=== PATIENT | female | born 1950 | race Caucasian/White ===

== ENCOUNTER 2018-04-03 21:52 | Emergency (ER) | payer MEDICARE ==
[~2018-04-03] VITALS: Ht 157.5 cm; Wt 103.3 kg
[2018-04-03 22:16] VITALS: BP 153/77
[2018-04-03] MEDS ORDERED: ondansetron/PF 4mg/2ml inj IV ONE (22:25)
[2018-04-03 22:40] LABS: PARTIAL THROMBOPLASTIN TIME 25 SECONDS (22-32); PROTHROMBIN TIME 10.6 SECONDS (9.0-12.0)
[2018-04-03 22:41] LABS: ALANINE AMINOTRANSFERASE 23 U/L (12-78); ALBUMIN 3.3 G/DL (3.4-5.0); ALBUMIN/GLOBULIN RATIO 0.8 (1.1-1.5); ALKALINE PHOSPHATASE 120 IU/L (46-116); ANION GAP 13 (8-16); ASPARTATE AMINO TRANSFERASE 17 U/L (10-37); BILIRUBIN,TOTAL 0.3 MG/DL (0.1-1.0); BLOOD UREA NITROGEN 9 MG/DL (7-18); BUN/CREATININE RATIO 10.1 (6.6-38.0); CALCIUM 9.2 MG/DL (8.5-10.1); CHLORIDE 104 MMOL/L (99-107); CREATININE 0.89 MG/DL (0.40-0.90); GLUCOSE 120 MG/DL (70-104); SODIUM 142 MMOL/L (135-145); TOTAL CARBON DIOXIDE 24.6 MMOL/L (24-32); TOTAL PROTEIN 7.5 G/DL (6.4-8.2); eGFR 63 ML/MIN
[2018-04-03 22:52] LABS: BASOPHILS # (AUTO) 0.1 X10'3 (0-0.2); BASOPHILS % (AUTO) 1.2 % (0-1); EOSINOPHILS # (AUTO) 0.3 X10'3 (0-0.9); EOSINOPHILS % (AUTO) 3.5 % (0-6); HEMATOCRIT 30.3 % (35.0-45.0); HEMOGLOBIN 9.6 g/dl (12.0-16.0); LYMPHOCYTES % (AUTO) 21.8 % (21-51); MEAN CORPUSCULAR HEMOGLOBIN 24.7 PG (27.0-31.0); MEAN CORPUSCULAR HGB CONC 31.5 % (33.0-36.5); MEAN CORPUSCULAR VOLUME 78.5 FL (78-98); MEAN PLATELET VOLUME 9.8 FL (7.4-10.4); MONOCYTES # (AUTO) 0.7 X10'3 (0-0.9); MONOCYTES % (AUTO) 7.5 % (2-12); NEUTROPHILS # (AUTO) 6.2 X10'3 (1.8-7.7); PLATELET COUNT 301 X10'3 (140-440); RED BLOOD COUNT 3.87 X10'6 (4.20-5.60); RED CELL DISTRIBUTION WIDTH 20.4 % (11.5-14.5); WHITE BLOOD COUNT 9.4 X10'3 (4.5-11.0)
[2018-04-03] MEDS ORDERED: potassium Cl 20 mEq SR tablet PO STA (23:11)
[2018-04-03] MEDS ORDERED: potassium 10mEq/100ml NS w/LIDOcaine (10mg/bag) IV ONE (23:15)
[2018-04-03] MEDS ORDERED: iohexol 300mg/ml 100ml inj. ONE (23:28)
[2018-04-03 23:53] LABS: HYPOCHROMASIA 1+; LARGE PLATELETS FEW; PLATELET ESTIMATE NORMAL
[2018-04-03 23:54] LABS: ANISOCYTOSIS 2+
[2018-04-04] MEDS ORDERED: ALBU8HFA PO (01:13)
== END 2018-04-04 01:26 | disposition home or self-care (01) ==
LOC: ER 21:53
DX: J44.9 Chronic obstructive pulmonary disease, unspecified (principal); E11.9 Type 2 diabetes mellitus without complications; I70.0 Atherosclerosis of aorta; Z86.73 Personal history of transient ischemic attack (TIA), and cerebral infarction without residual deficits; Z90.49 Acquired absence of other specified parts of digestive tract; Z98.890 Other specified postprocedural states; Z79.899 Other long term (current) drug therapy
CPT/HCPCS: 36415; 70491; 71045; 80053; 83880; 84484; 85025; 85610; 85730; 93005; 96374; 99285; J2405; J3480; Q9967

== ENCOUNTER 2018-09-07 10:18 | Outpatient (CLI) | payer MEDICARE ==
[~2018-09-07] VITALS: Ht 188 cm; Wt 149.7 kg
[2018-09-07 10:51] LABS: TOTAL HEMOGLOBIN 15.6 G/dl (12.0-16.0)
[2018-09-07] MEDS ORDERED: albuterol 2.5 MG/3 ML nebule NEB ONE (11:10)
== END 2018-09-07 23:59 | disposition home or self-care (01) ==
LOC: RT 10:18
PROVIDERS: ATTEND Internal Medicine Pulmonary Disease
DX: J44.9 Chronic obstructive pulmonary disease, unspecified (principal); J61 Pneumoconiosis due to asbestos and other mineral fibers; I10 Essential (primary) hypertension; F17.200 Nicotine dependence, unspecified, uncomplicated
CPT/HCPCS: 85018; 94060; 94727; 94729; 94760

== ENCOUNTER 2018-09-10 19:59 | Emergency (ER) | payer MEDICARE ==
[~2018-09-10] VITALS: Ht 157.5 cm; Wt 100.0 kg
[2018-09-10 20:09] VITALS: BP 119/59
[2018-09-10] MEDS ORDERED: HYDROcodone/acetaminophen 10/325mg tab PO STA (20:11)
[2018-09-10] MEDS ORDERED: HYDR-3965 PO (22:57)
== END 2018-09-10 23:07 | disposition home or self-care (01) ==
LOC: ER 20:00
DX: G89.29 Other chronic pain (principal); M54.5 Low back pain; J44.9 Chronic obstructive pulmonary disease, unspecified; E11.9 Type 2 diabetes mellitus without complications; Z86.73 Personal history of transient ischemic attack (TIA), and cerebral infarction without residual deficits; Z90.49 Acquired absence of other specified parts of digestive tract
CPT/HCPCS: 99283

== ENCOUNTER 2019-06-24 00:11 | Emergency (ER) | payer MEDICARE ==
[~2019-06-24] VITALS: Ht 157.5 cm; Wt 104.5 kg
[2019-06-24] MEDS ORDERED: AMOX-580 PO (03:09)
[2019-06-24] MEDS ORDERED: amox tr/potassium clavulanate 875/125mg TAB PO ONE (03:10)
[2019-06-24 03:24] VITALS: BP 119/76
== END 2019-06-24 03:31 | disposition home or self-care (01) ==
LOC: ER 00:12
DX: L03.032 Cellulitis of left toe (principal); L02.612 Cutaneous abscess of left foot; J44.9 Chronic obstructive pulmonary disease, unspecified; E11.9 Type 2 diabetes mellitus without complications; G89.29 Other chronic pain; F17.200 Nicotine dependence, unspecified, uncomplicated; Z86.73 Personal history of transient ischemic attack (TIA), and cerebral infarction without residual deficits; Z90.49 Acquired absence of other specified parts of digestive tract; Z98.890 Other specified postprocedural states
CPT/HCPCS: 10060; 99283

== ENCOUNTER 2022-08-12 20:11 | Inpatient (IN) | payer MEDICARE ==
[~2022-08-12] VITALS: Ht 162.6 cm; Wt 109.7 kg
[2022-08-12] MEDS ORDERED: morphine 4 MG/ML inj SYRINge IV ONE (23:55)
[2022-08-12] MEDS ORDERED: ondansetron/PF 4mg/2ml inj IV ONE (23:55)
[2022-08-13] VITALS (30 sets, daily range): BP systolic 71–142; BP diastolic 36–112
[2022-08-13] MEDS ORDERED: piperacillin/tazo 4.5gm/100ml 100 ML IV ONE
[2022-08-13] MEDS ORDERED: iohexol 300mg/ml 100ml inj. ONE (00:39)
[2022-08-13 00:43] LABS: BASOPHILS % (AUTO) 0.3 % (0-1); EOSINOPHILS % (AUTO) 0 % (0-6); LYMPHOCYTES # (AUTO) 0.8 X10'3 (1.1-4.8); LYMPHOCYTES % (AUTO) 4.3 % (21-51); MEAN CORPUSCULAR HEMOGLOBIN 20.2 PG (27.0-31.0); MEAN CORPUSCULAR HGB CONC 29.9 g/dL (33.0-36.5); MEAN CORPUSCULAR VOLUME 67.7 FL (78-98); MEAN PLATELET VOLUME 9.1 FL (7.4-10.4); MONOCYTES # (AUTO) 1.4 X10'3 (0-0.9); MONOCYTES % (AUTO) 7.7 % (2-12); NEUTROPHILS # (AUTO) 15.8 X10'3 (1.8-7.7); NEUTROPHILS % (AUTO) 87.7 % (42-75); PLATELET COUNT 313 X10'3 (140-440); RED BLOOD COUNT 3.07 X10'6 (4.20-5.60); RED CELL DISTRIBUTION WIDTH 19.6 % (11.5-14.5)
[2022-08-13] MEDS ORDERED: AMLO2.5T2 PO (00:46)
[2022-08-13] MEDS ORDERED: PANT40TA54 PO (00:46)
[2022-08-13] MEDS ORDERED: B12 PO (00:46)
[2022-08-13] MEDS ORDERED: LOSA25TA96 PO (00:46)
[2022-08-13] MEDS ORDERED: CLOP-32 PO (00:46)
[2022-08-13] MEDS ORDERED: CALCIUM PO (00:46)
[2022-08-13] MEDS ORDERED: ATOR40TA71 PO (00:46)
[2022-08-13 00:52] LABS: HEMATOCRIT 20.8 % (35.0-45.0); HEMOGLOBIN 6.2 g/dl (12.0-16.0)
[2022-08-13 00:54] LABS: ALANINE AMINOTRANSFERASE 11 U/L (12-78); ALBUMIN/GLOBULIN RATIO 0.7 (1.1-1.5); ALKALINE PHOSPHATASE 100 IU/L (46-116); ANION GAP 12 (8-16); ASPARTATE AMINO TRANSFERASE 13 U/L (10-37); BILIRUBIN,TOTAL 0.7 MG/DL (0.1-1.0); BLOOD UREA NITROGEN 11 MG/DL (7-18); CALCIUM 9.3 MG/DL (8.5-10.1); CHLORIDE 102 MMOL/L (99-107); GLUCOSE 138 MG/DL (70-104); POTASSIUM 4.2 MMOL/L (3.5-5.1); SODIUM 135 MMOL/L (135-145); TOTAL CARBON DIOXIDE 20.6 MMOL/L (24-32); TOTAL PROTEIN 7.5 G/DL (6.4-8.2); eGFR 49 ML/MIN
[2022-08-13 00:57] LABS: MAGNESIUM 1.6 MG/DL (1.5-2.4)
[2022-08-13] MEDS ORDERED: normal saline 1000ml 1,000 ML IV ONE ×3 (01:05→06:10)
[2022-08-13 01:19] LABS: ANISOCYTOSIS 2+; MICROCYTOSIS 2+; PLATELET ESTIMATE NORMAL
[2022-08-13 01:20] LABS: ELLIPTOCYTES FEW; HYPOCHROMASIA 1+; POLYCHROMASIA FEW
--- NOTE | 2022-08-13 01:27 | NUR ---
sister, stefanie, wants to be called with an update after 429. [phone]
--- NOTE | 2022-08-13 01:55 | NUR ---
Assumed care of patient at this time, patient noted to have BP 88/35, NSR 97.
[2022-08-13] MEDS ORDERED: vancomycin inj 1,000 MG in normal saline 250ml IV soln 250 ML IV ONE (02:05)
[2022-08-13] MEDS ORDERED: vancomycin/NS 1 GM ADD-VANTAGE 250 ML IV ONE (02:10)
[2022-08-13 02:27] LABS: C-REACTIVE PROTEIN 8.79 MG/DL (0.0-0.5)
--- NOTE | 2022-08-13 03:03 | NUR ---
Provider aware of ready blood, currently running slow zosyn, and order for vanco. Patient has two IV sites, patient mildly difficult IV start. Provider advised underwriter prioritize abx over blood given number of available lines.
--- NOTE | 2022-08-13 03:16 | NUR ---
Attempted 3rd IV site, unsuccessful, will revert back to original plan of IV abx -> blood transfusion.
--- NOTE | 2022-08-13 04:24 | NUR ---
Provider aware of new VS, no concern for blood transfusion reaction. patient also has noted expiratory wheezing, this was present prior to start of transfusion, patient reports using MDI for management at home.
[2022-08-13] MEDS ORDERED: ipratropium/albuterol 3ml nebule NEB ONE (04:25)
[2022-08-13] MEDS: normal saline 1000ml 1,000 ML IV SCH ×3 (04:45→23:36)
[2022-08-13] MEDS ORDERED: magnesium Cl slow-release 64mg tablet PO PRN (04:45)
[2022-08-13] MEDS ORDERED: ondansetron/PF 4mg/2ml inj IV PRN ×2 (04:45→17:20)
[2022-08-13] MEDS ORDERED: potassium Cl 40MEQ/1/2NS 520ml 520 ML IV PRN (04:45)
[2022-08-13] MEDS ORDERED: acetaminophen 325mg tablet PO PRN (04:45)
[2022-08-13] MEDS ORDERED: magnesium 4gm in 100ml NS 100 ML IV PRN (04:45)
[2022-08-13] MEDS ORDERED: potassium Cl 20 mEq SR tablet PO PRN ×2 (04:45)
[2022-08-13] MEDS ORDERED: CALC-336 PO (05:04)
[2022-08-13] MEDS ORDERED: AMLO5TAB PO (05:04)
[2022-08-13] MEDS ORDERED: CYAN500T46 PO (05:04)
[2022-08-13] MEDS ORDERED: LOSA50TA64 PO (05:05)
--- NOTE | 2022-08-13 05:23 | NUR ---
Straight cath completed for clean UA collection. patient tolerated well, sterile setup and process maintained. Process chaperoned by Estefany the nurse.
[2022-08-13 05:40] LABS: CLARITY,URINE CLEAR (Clear); COLOR,URINE YELLOW (Yellow); GLUCOSE, URINE NEGATIVE (Neg); KETONES,URINE NEGATIVE (Neg); LEUKOCYTE ESTERASE ,URINE NEGATIVE (Neg); NITRITES, URINE NEGATIVE (Neg); OCCULT BLOOD,URINE NEGATIVE (Neg); PROTEIN,URINE NEGATIVE (Neg); UROBILINOGEN,URINE 0.2 E.U/dL (0.2-1.0)
[2022-08-13 05:45] LABS: UA COLLECTION TYPE STRAIGHT CATH
--- NOTE | 2022-08-13 06:14 | NUR ---
Provider at bedside, aware of hypotension, advised 250mL bolus. patient otherwise unchanged, denies dizziness, or other new symptoms.
[2022-08-13] MEDS ORDERED: normal saline 1000ml 250 ML IV ONE (06:18)
[2022-08-13] MEDS: K and/or MAG REPLACEMENT MC SCH ×2 (08:00→20:00)
[2022-08-13] MEDS ORDERED: ceFAZolin/D5W- 1GM premix 50 ML IV SCH (08:00)
[2022-08-13] MEDS: cyanocobalamin 500mcg tablet PO SCH (08:00)
[2022-08-13] MEDS: losartan 50mg tablet PO SCH (09:58)
[2022-08-13] MEDS: HYDROcodone/acetaminophen 5mg/325mg tablet PO PRN (09:58)
[2022-08-13] MEDS: atorvastatin 20mg tablet PO SCH (09:59)
[2022-08-13] MEDS: amLODIPine 5mg tablet PO SCH (09:59)
[2022-08-13] MEDS: pantoprazole 40mg Tablet.DR PO SCH (09:59)
[2022-08-13] MEDS: calcium carbonate 500mg chew tablet PO SCH (09:59)
[2022-08-13] MEDS: piperacillin/tazo 3.375gm/50ml 50 ML IV SCH ×3 (10:00→23:31)
[2022-08-13 10:48] LABS: HEMATOCRIT 22.6 % (35.0-45.0); MEAN CORPUSCULAR HEMOGLOBIN 20.3 PG (27.0-31.0); MEAN CORPUSCULAR HGB CONC 29.4 g/dL (33.0-36.5); MEAN CORPUSCULAR VOLUME 69.1 FL (78-98); MEAN PLATELET VOLUME 9.1 FL (7.4-10.4); RED BLOOD COUNT 3.27 X10'6 (4.20-5.60); RED CELL DISTRIBUTION WIDTH 20.6 % (11.5-14.5); WHITE BLOOD COUNT 17.6 X10'3 (4.5-11.0)
[2022-08-13 10:49] LABS: PLATELET COUNT 281 X10'3 (140-440)
[2022-08-13 10:50] LABS: HEMOGLOBIN 6.7 g/dl (12.0-16.0)
[2022-08-13 11:22] LABS: IRON 167 UG/DL (49-151)
[2022-08-13 14:49] LABS: % IRON SATURATION 49 % (11-46); TOTAL IRON BINDING CAPACITY 340 UG/DL (259-388)
[2022-08-13] MEDS ORDERED: pneumococcal 23-VAL P-sac vacc 25 mcg/0.5ml vial IMVAC ONE (15:00)
--- NOTE | 2022-08-13 15:31 | NUR ---
sent MRSA to lab
--- NOTE | 2022-08-13 15:49 | NUR ---
Permission to speak with Daughter Marie. Answered all questions appropriately.
[2022-08-13] MEDS ORDERED: morphine 4 MG/ML inj SYRINge IV PRN (17:20)
[2022-08-13] MEDS ORDERED: proCHLORperazine 10 MG/2 ml inj IV PRN (17:20)
[2022-08-13] MEDS ORDERED: morphine 2 MG/ML inj. syringe IV PRN (17:20)
[2022-08-13] MEDS ORDERED: ringers solution, lacted 1,000 ML IV SCH (17:20)
[2022-08-13] MEDS ORDERED: hydrALAZINE 20mg/ml inj. IV PRN (17:20)
[2022-08-13] MEDS ORDERED: meperidine/PF 25mg/ml syringe IV PRN ×3 (17:20)
[2022-08-13] MEDS ORDERED: acetaminophen 1,000mg/100ml IV 100 ML IV PRN (17:20)
[2022-08-13] MEDS ORDERED: labetalol 20mg/4ml (5mg/ml) syringe IV PRN (17:20)
[2022-08-13] MEDS ORDERED: sevoflurane 250ml liquid IH ONE (17:32)
[2022-08-13] MEDS ORDERED: midazolam 1 mg/ML 2ml injection ONE (17:45)
[2022-08-13] MEDS ORDERED: fentaNYL/PF 50MCG/1 ML 2ML syringe ONE (17:45)
[2022-08-13] MEDS ORDERED: propofol inj 20 ML IV ONE (18:03)
[2022-08-13] MEDS ORDERED: LIDOcaine 2% (20mg/ml) 5ml vial ONE (18:03)
[2022-08-13] MEDS ORDERED: ePHEDrine 50MG/ML INJ. ONE (18:03)
[2022-08-13] MEDS ORDERED: LIDOcaine 1% 30ml preserv. free vial ONE (18:07)
[2022-08-13] MEDS ORDERED: BUPIVAcaine 0.5% inj/PF 30 ML ONE (18:07)
[2022-08-13] MEDS ORDERED: ondansetron/PF 4mg/2ml inj ONE (18:09)
--- NOTE | 2022-08-13 18:20 | NUR ---
Patient in room PCU 3027. I have received report from LEAH Trinidad and had the opportunity to ask questions and assume patient care.
--- NOTE | 2022-08-13 18:32 | NUR ---
Received from OR via BED IN STABLE CONDITION, accompanied by Anesthesiologist and NATURAL GAS SHOTHOLE DRILLER report given by Anesthesityrell AND NATURAL GAS SHOTHOLE DRILLER. Addendum: 08/13/22 at 1843 by Johana Lopez RN Amended: Links added.
[2022-08-13] MEDS ORDERED: BUPIVAcaine 0.5% inj/PF 30 ml vial IJ ONE (18:46)
[2022-08-13] MEDS ORDERED: LIDOcaine 1% 30ml preserv. free vial IJ ONE (18:47)
--- NOTE | 2022-08-13 19:18 | NUR ---
PATIENT DISCHARGED FROM PACU IN STABLE CONDITION AFTER REPORT GIVEN TO RN TAKING OVER PATIENTS CARE. PATIENT TRASFERRED TO ROOM 3027B VIA BE WITH LEAH AND JOSE C. Addendum: 08/13/22 at 1936 by Johana Lopez RN Amended: Links added.
--- NOTE | 2022-08-13 19:35 | NUR ---
Patient in room PCU 3027. I have received report from LEAH Angelo and had the opportunity to ask questions and assume patient care.
[2022-08-13 19:55] LABS: MEAN PLATELET VOLUME 8.7 FL (7.4-10.4); PLATELET COUNT 255 X10'3 (140-440); RED CELL DISTRIBUTION WIDTH 21.4 % (11.5-14.5); WHITE BLOOD COUNT 16.6 X10'3 (4.5-11.0)
[2022-08-13 20:20] LABS: HEMATOCRIT 22.5 % (35.0-45.0)
[2022-08-13 20:21] LABS: MEAN CORPUSCULAR HEMOGLOBIN 21.2 PG (27.0-31.0); MEAN CORPUSCULAR HGB CONC 30.1 g/dL (33.0-36.5); MEAN CORPUSCULAR VOLUME 70.2 FL (78-98)
[2022-08-13 20:24] LABS: HEMOGLOBIN 6.8 g/dl (12.0-16.0)
[2022-08-14 02:00] VITALS: BP 99/51
[2022-08-14 03:20] VITALS: BP 101/57
[2022-08-14] MEDS: HYDROcodone/acetaminophen 5mg/325mg tablet PO PRN ×3 (04:35→19:49)
[2022-08-14 05:52] LABS: BASOPHILS # (AUTO) 0.1 X10'3 (0-0.2); BASOPHILS % (AUTO) 0.3 % (0-1); EOSINOPHILS % (AUTO) 0 % (0-6); HEMATOCRIT 24.7 % (35.0-45.0); HEMOGLOBIN 7.7 g/dl (12.0-16.0); LYMPHOCYTES % (AUTO) 6.1 % (21-51); MEAN CORPUSCULAR HEMOGLOBIN 22.8 PG (27.0-31.0); MEAN CORPUSCULAR VOLUME 73.4 FL (78-98); MEAN PLATELET VOLUME 8.9 FL (7.4-10.4); MONOCYTES # (AUTO) 1.2 X10'3 (0-0.9); NEUTROPHILS # (AUTO) 14.4 X10'3 (1.8-7.7); NEUTROPHILS % (AUTO) 86.6 % (42-75); PLATELET COUNT 237 X10'3 (140-440); RED BLOOD COUNT 3.36 X10'6 (4.20-5.60); RED CELL DISTRIBUTION WIDTH 21.7 % (11.5-14.5); WHITE BLOOD COUNT 16.6 X10'3 (4.5-11.0)
[2022-08-14 06:11] LABS: ALBUMIN 2.2 G/DL (3.4-5.0); ANION GAP 11 (8-16); BLOOD UREA NITROGEN 12 MG/DL (7-18); BUN/CREATININE RATIO 12.8 (6.6-38.0); CALCIUM 8.2 MG/DL (8.5-10.1); CHLORIDE 104 MMOL/L (99-107); CREATININE 0.94 MG/DL (0.40-0.90); GLUCOSE 115 MG/DL (70-104); POTASSIUM 3.9 MMOL/L (3.5-5.1); SODIUM 135 MMOL/L (135-145); TOTAL CARBON DIOXIDE 20.4 MMOL/L (24-32); eGFR 58 ML/MIN
--- NOTE | 2022-08-14 06:37 | NUR ---
Problems reprioritized. Patient report given, questions answered & plan of care reviewed with LEAH Cai.
[2022-08-14 07:00] VITALS: BP 86/49
[2022-08-14 07:46] LABS: ANISOCYTOSIS 3+; MICROCYTOSIS 1+; PLATELET ESTIMATE NORMAL; TOTAL CELLS COUNTED 100
[2022-08-14 07:47] LABS: HYPOCHROMASIA 2+
[2022-08-14 07:49] LABS: POLYCHROMASIA 1+
[2022-08-14 07:50] LABS: SCHISTOCYTES FEW
[2022-08-14] MEDS: amLODIPine 5mg tablet PO SCH (08:00)
[2022-08-14] MEDS: losartan 50mg tablet PO SCH (08:00)
[2022-08-14] MEDS: atorvastatin 20mg tablet PO SCH (08:00)
[2022-08-14] MEDS: K and/or MAG REPLACEMENT MC SCH ×2 (08:00→19:33)
[2022-08-14] MEDS: cyanocobalamin 500mcg tablet PO SCH (08:13)
[2022-08-14] MEDS: calcium carbonate 500mg chew tablet PO SCH (08:13)
[2022-08-14] MEDS: pantoprazole 40mg Tablet.DR PO SCH (08:13)
[2022-08-14] MEDS: piperacillin/tazo 3.375gm/50ml 50 ML IV SCH ×3 (08:13→23:41)
--- NOTE | 2022-08-14 08:20 | NUR ---
provided IS with education. Pt agreeable and demonstrated understanding
--- NOTE | 2022-08-14 10:43 | NUR ---
Pt c/o inability to urinate. LEAH bladder scanned 3x and got 23ml. Will continue to monitor Addendum: 08/14/22 at 1249 by Vivi Dickens RN 394ml bladder scan, verbally s/w Dr Koch- aware no post-procedure void. Will straight cath after lunch
[2022-08-14] MEDS: normal saline 1000ml 1,000 ML IV SCH ×2 (10:49→19:53)
[2022-08-14] MEDS: linezolid 600mg tablet PO SCH ×2 (11:09→19:53)
[2022-08-14 12:00] VITALS: BP 99/80
--- NOTE | 2022-08-14 15:29 | NUR ---
Straight cath pt at 1400, 650out. Will continue to monitor. Pt resting on edge of bed.
[2022-08-14 18:00] VITALS: BP 95/62
[2022-08-14 22:00] VITALS: BP 105/75
[2022-08-15 02:00] VITALS: BP 111/63
[2022-08-15] MEDS: HYDROcodone/acetaminophen 5mg/325mg tablet PO PRN (02:57)
[2022-08-15] MEDS: morphine 2 MG/ML inj. syringe IV PRN ×3 (05:47→21:14)
[2022-08-15] MEDS: normal saline 1000ml 1,000 ML IV SCH ×3 (06:39→23:00)
[2022-08-15 07:00] VITALS: BP 95/50
--- NOTE | 2022-08-15 07:51 | NUR ---
Pt voided in bedpan, 350ml out. PVR 73ml with bladder scanner. Will continue to monitor.
[2022-08-15] MEDS: losartan 50mg tablet PO SCH (08:00)
[2022-08-15] MEDS: K and/or MAG REPLACEMENT MC SCH ×2 (08:00→20:00)
[2022-08-15 08:04] LABS: ANION GAP 9 (8-16); BLOOD UREA NITROGEN 11 MG/DL (7-18); BUN/CREATININE RATIO 12.4 (6.6-38.0); CALCIUM 8.2 MG/DL (8.5-10.1); CHLORIDE 105 MMOL/L (99-107); CREATININE 0.89 MG/DL (0.40-0.90); GLUCOSE 100 MG/DL (70-104); POTASSIUM 3.6 MMOL/L (3.5-5.1); SODIUM 135 MMOL/L (135-145); TOTAL CARBON DIOXIDE 20.7 MMOL/L (24-32); eGFR 62 ML/MIN
[2022-08-15 08:09] LABS: BASOPHILS % (AUTO) 0.4 % (0-1); EOSINOPHILS # (AUTO) 0.1 X10'3 (0-0.9); EOSINOPHILS % (AUTO) 0.7 % (0-6); HEMATOCRIT 25.2 % (35.0-45.0); HEMOGLOBIN 7.7 g/dl (12.0-16.0); LYMPHOCYTES % (AUTO) 7.9 % (21-51); MEAN CORPUSCULAR HEMOGLOBIN 22.6 PG (27.0-31.0); MEAN CORPUSCULAR HGB CONC 30.5 g/dL (33.0-36.5); MONOCYTES # (AUTO) 0.8 X10'3 (0-0.9); MONOCYTES % (AUTO) 6.4 % (2-12); NEUTROPHILS # (AUTO) 10.7 X10'3 (1.8-7.7); NEUTROPHILS % (AUTO) 84.6 % (42-75); PLATELET COUNT 247 X10'3 (140-440); RED BLOOD COUNT 3.41 X10'6 (4.20-5.60); RED CELL DISTRIBUTION WIDTH 21.9 % (11.5-14.5); WHITE BLOOD COUNT 12.6 X10'3 (4.5-11.0)
--- NOTE | 2022-08-15 08:20 | NUR ---
Paged Dr Koch: Charlie 27B. Pt c/o constipation, last BM 08/11 (unable to obtain occult stool). No PRN available. Pt prefers Sennokot or docusate? Vivi [phone]
[2022-08-15] MEDS: linezolid 600mg tablet PO SCH ×2 (08:23→21:32)
[2022-08-15] MEDS: piperacillin/tazo 3.375gm/50ml 50 ML IV SCH ×2 (08:23→16:16)
[2022-08-15] MEDS: atorvastatin 20mg tablet PO SCH (08:23)
[2022-08-15] MEDS: cyanocobalamin 500mcg tablet PO SCH (08:23)
[2022-08-15] MEDS: pantoprazole 40mg Tablet.DR PO SCH (08:23)
[2022-08-15] MEDS ORDERED: bisacodyl 10mg suppository rectal RC STA (08:34)
[2022-08-15 09:01] LABS: ANISOCYTOSIS 3+; MICROCYTOSIS 1+; PLATELET ESTIMATE NORMAL; POIKILOCYTOSIS FEW; POLYCHROMASIA FEW
[2022-08-15] MEDS: sennosides/docusate sodium tablet PO SCH ×2 (10:42→21:32)
[2022-08-15 12:00] VITALS: BP 85/45
[2022-08-15] MEDS ORDERED: pneumococcal 23-VAL P-sac vacc 25 mcg/0.5ml vial IMVAC ONE (12:00)
--- NOTE | 2022-08-15 13:38 | NUR ---
Son endorsed concerns regarding AMS, possible stroke. This RN performed NIHSS and pt is negative. Dietary expressed concerns regarding possible suicidal ideation, pt states she "talks about it and thinks about it alot but I'm not going to do anything about it". When questioned how she would kill herself, she stated "I wouldn't have ANY idea!". This RN does not endorse pt safety issues. Discussed with Brittni HUNT. RN to continue monitoring. Addendum: 08/15/22 at 1514 by Vivi Dickens RN Pt expressed interest in speaking with SW. LYNN to place order.
--- NOTE | 2022-08-15 13:58 | NUR ---
Paged RT: Charlie [phone]. Pt requesting breathing tx. Thanks
[2022-08-15] MEDS: albuterol 2.5 MG/3 ML nebule NEB PRN ×2 (14:30→21:32)
--- NOTE | 2022-08-15 14:55 | NUR ---
Initial: Pt admit for sepsis secondary to right inner thigh cellulitis, left renal mass, and anemia. Pt currently POD #2 s/p I&D of right groin. Wound care assessment pending at this time. Noted pt receiving Zyvox, pt seen at bedside for written and verbal low tyramine and verbal high protein nutrition therapy educations. Pt reports a low appetite that has been ongoing for about two weeks though denies any known wt loss. Per EMR pt with average 21% PO intake not meeting estimated nutrient needs. Pt reports disliking the food and states she doesn't like veggies. Pt informed that she must receive veggies on her tray though doesn't have to eat them if she doesn't want to. Despite reporting not liking the food pt declined any alternative options though did request no coffee or hot cereal, d/w dietary. RD discussed the importance of nutrition with emphasis on protein. Pt states she has been avoiding protein d/t it being too expensive. RD assured pt that she can consume meals and discussed ONS. Pt agrees to vanilla Ensure during admit. Recommend Ensure Plus HP TID to optimize nutrient intake, to be sent pending physician approval in EMR. Pt declined ONS coupons at this time. Pt denies food allergies or difficulty chewing/swallowing. Per EMR LBM 08/12. Pt started on routine bowel care today with one time Dulcolax suppository. Pt declines nutrition intervention to assist with bowel regularity. During RD visit pt stated that yesterday she "wanted to kill herself". Pt states she still feels that way stating she has a lot going on with her SO passing in 2014, her son having stage IV renal cancer, and her newly found renal mass. Pt declined SW consult. All information obtained from pt was d/w charge master specialist. Pt provided with RD contact information and encouraged to reach out if needed. Will continue to follow closely. Recommendations: 1) Liberalize to regular diet if PO intake does not improve 2) Vanilla Ensure Plus HP TID, pending physician approval in EMR 3) Thida food preferences: no coffee or hot cereal 4) Routine bowel care 5) Weekly scaled weights Addendum: 08/15/22 at [address] Amended: Links added.
--- NOTE | 2022-08-15 15:43 | NUR ---
Wound care performed per orders in EMR. Pt tolerated well Addendum: 08/15/22 at 1750 by Vivi Dickens RN Bladder scan at 1400 showed 100ml. Pt voiding in janet
[2022-08-15 18:00] VITALS: BP 127/38
--- NOTE | 2022-08-15 18:16 | NUR ---
Jadiel is son, permission to speak with him. #[phone]
--- NOTE | 2022-08-15 20:45 | NUR ---
Around this time I answered pt's call light and she was upset and wanted out of her bed. She hasn't been out of bed since she arrived to hospital that I know of. She can hardly move onto the bedpan,I tried to have her wait until PT could asses her ability to transfer out of bed but she insisted on getting to a chair. With 3 people we were able to use the Steady and transfer her to the recliner with moderate difficulty. I also medicated her with morphine after this. I informed the pt's nurse of the situation.
[2022-08-16] MEDS: piperacillin/tazo 3.375gm/50ml 50 ML IV SCH ×3 (00:55→16:24)
[2022-08-16 02:00] VITALS: BP 130/55
--- NOTE | 2022-08-16 06:41 | NUR ---
Patient in room PCU 3020. I have received report from bill tomas and had the opportunity to ask questions and assume patient care.
[2022-08-16 07:00] VITALS: BP 94/55
[2022-08-16 07:05] LABS: BASOPHILS # (AUTO) 0.1 X10'3 (0-0.2); BASOPHILS % (AUTO) 0.4 % (0-1); EOSINOPHILS # (AUTO) 0.1 X10'3 (0-0.9); EOSINOPHILS % (AUTO) 0.5 % (0-6); HEMATOCRIT 24.5 % (35.0-45.0); HEMOGLOBIN 7.4 g/dl (12.0-16.0); LYMPHOCYTES # (AUTO) 0.8 X10'3 (1.1-4.8); LYMPHOCYTES % (AUTO) 6.7 % (21-51); MEAN CORPUSCULAR HEMOGLOBIN 22.6 PG (27.0-31.0); MEAN CORPUSCULAR HGB CONC 30.2 g/dL (33.0-36.5); MEAN CORPUSCULAR VOLUME 74.8 FL (78-98); MEAN PLATELET VOLUME 8.9 FL (7.4-10.4); MONOCYTES % (AUTO) 8.3 % (2-12); NEUTROPHILS # (AUTO) 9.7 X10'3 (1.8-7.7); NEUTROPHILS % (AUTO) 84.1 % (42-75); PLATELET COUNT 269 X10'3 (140-440); RED BLOOD COUNT 3.28 X10'6 (4.20-5.60); RED CELL DISTRIBUTION WIDTH 22.5 % (11.5-14.5); WHITE BLOOD COUNT 11.6 X10'3 (4.5-11.0)
[2022-08-16 07:18] LABS: ALBUMIN 1.9 G/DL (3.4-5.0); ANION GAP 10 (8-16); BLOOD UREA NITROGEN 8 MG/DL (7-18); BUN/CREATININE RATIO 9.8 (6.6-38.0); CALCIUM 8.2 MG/DL (8.5-10.1); CHLORIDE 106 MMOL/L (99-107); CREATININE 0.82 MG/DL (0.40-0.90); GLUCOSE 109 MG/DL (70-104); POTASSIUM 3.5 MMOL/L (3.5-5.1); SODIUM 136 MMOL/L (135-145); TOTAL CARBON DIOXIDE 20.5 MMOL/L (24-32); eGFR 68 ML/MIN
[2022-08-16] MEDS: furosemide 20 MG/2 ML vial IV SCH ×2 (08:00→20:58)
[2022-08-16] MEDS: sennosides/docusate sodium tablet PO SCH ×2 (08:00→20:00)
[2022-08-16] MEDS: losartan 50mg tablet PO SCH (08:00)
[2022-08-16] MEDS: K and/or MAG REPLACEMENT MC SCH ×2 (08:00→20:00)
[2022-08-16] MEDS: morphine 2 MG/ML inj. syringe IV PRN (08:50)
[2022-08-16] MEDS: pantoprazole 40mg Tablet.DR PO SCH (08:52)
[2022-08-16] MEDS: linezolid 600mg tablet PO SCH ×2 (08:52→20:58)
[2022-08-16] MEDS: atorvastatin 20mg tablet PO SCH (08:52)
[2022-08-16] MEDS: cyanocobalamin 500mcg tablet PO SCH (08:52)
[2022-08-16 09:00] VITALS: BP 102/52
--- NOTE | 2022-08-16 09:28 | NUR ---
Page Sent PAGER ID: [phone] MESSAGE: [phone] atilio, pt has an h/h of 7.4/24.5, also held lasix and coreg due to decreased bp. opal [id number]
[2022-08-16 11:00] VITALS: BP 94/52
[2022-08-16 16:00] VITALS: BP 157/75
[2022-08-16] MEDS: HYDROcodone/acetaminophen 5mg/325mg tablet PO PRN (16:26)
--- NOTE | 2022-08-16 17:00 | NUR ---
page to respiratory: 3020 Guerra patient requesting breathing tx for SOB. sat 91% Candice@ [phone]
[2022-08-16] MEDS: albuterol 2.5 MG/3 ML nebule NEB PRN (17:14)
[2022-08-16 18:00] VITALS: BP 93/64
--- NOTE | 2022-08-16 18:26 | NUR ---
Problems reprioritized. Patient report given, questions answered & plan of care reviewed with bill tomas.
[2022-08-17 02:00] VITALS: BP 109/47
[2022-08-17 06:09] LABS: BASOPHILS % (AUTO) 0.5 % (0-1); EOSINOPHILS # (AUTO) 0.1 X10'3 (0-0.9); HEMATOCRIT 25.5 % (35.0-45.0); HEMOGLOBIN 7.6 g/dl (12.0-16.0); LYMPHOCYTES # (AUTO) 0.7 X10'3 (1.1-4.8); LYMPHOCYTES % (AUTO) 6.7 % (21-51); MEAN CORPUSCULAR HEMOGLOBIN 22.3 PG (27.0-31.0); MEAN CORPUSCULAR VOLUME 74.4 FL (78-98); MEAN PLATELET VOLUME 8.5 FL (7.4-10.4); MONOCYTES # (AUTO) 0.7 X10'3 (0-0.9); NEUTROPHILS # (AUTO) 8.5 X10'3 (1.8-7.7); NEUTROPHILS % (AUTO) 84.8 % (42-75); PLATELET COUNT 276 X10'3 (140-440); RED BLOOD COUNT 3.43 X10'6 (4.20-5.60)
[2022-08-17 06:20] LABS: ALBUMIN 1.8 G/DL (3.4-5.0); ANION GAP 9 (8-16); BLOOD UREA NITROGEN 6 MG/DL (7-18); BUN/CREATININE RATIO 7.6 (6.6-38.0); CALCIUM 8.5 MG/DL (8.5-10.1); CHLORIDE 107 MMOL/L (99-107); CREATININE 0.79 MG/DL (0.40-0.90); GLUCOSE 106 MG/DL (70-104); POTASSIUM 3.3 MMOL/L (3.5-5.1); SODIUM 139 MMOL/L (135-145); TOTAL CARBON DIOXIDE 23.3 MMOL/L (24-32); eGFR 71 ML/MIN
--- NOTE | 2022-08-17 06:28 | NUR ---
Patient in room PCU 3020. I have received report from BARBARA LYNN and had the opportunity to ask questions and assume patient care.
[2022-08-17 06:56] VITALS: BP 140/70
[2022-08-17] MEDS: atorvastatin 20mg tablet PO SCH (07:35)
[2022-08-17] MEDS: piperacillin/tazo 3.375gm/50ml 50 ML IV SCH ×2 (07:36)
[2022-08-17] MEDS: furosemide 20 MG/2 ML vial IV SCH (07:36)
[2022-08-17] MEDS: linezolid 600mg tablet PO SCH (07:36)
[2022-08-17] MEDS: pantoprazole 40mg Tablet.DR PO SCH (07:36)
[2022-08-17] MEDS: cyanocobalamin 500mcg tablet PO SCH (07:36)
[2022-08-17] MEDS: losartan 50mg tablet PO SCH (07:38)
[2022-08-17] MEDS: K and/or MAG REPLACEMENT MC SCH (08:00)
[2022-08-17] MEDS: sennosides/docusate sodium tablet PO SCH (08:00)
[2022-08-17] MEDS ORDERED: potassium Cl 20 mEq SR tablet PO ONE (09:00)
[2022-08-17] MEDS ORDERED: CefTRIAXone 2gm/D5W 50ml BAG 50 ML IV SCH (09:55)
[2022-08-17 11:00] VITALS: BP 104/65
[2022-08-17] MEDS: albuterol 2.5 MG/3 ML nebule NEB PRN (11:39)
--- NOTE | 2022-08-17 11:49 | NUR ---
pt will be going to [facility] today, wound stated she will be doing wound care again before pt leaves and will be taking the pictures for discharge.
[2022-08-17] MEDS: HYDROcodone/acetaminophen 5mg/325mg tablet PO PRN (12:37)
--- NOTE | 2022-08-17 12:39 | NUR ---
pt seems to have bouts of confusion. she had an issue with being left in a bm this am but an aide had changed her, she then continued to mention that she hasn't been changed all day to other staff and is being left in her stool. at 0730 am when giving meds pt never said anything about a bm and then an aide went in about 0900 and changed her. i and the drone software development engineer then changed her gain at 1030 and put her in the chair for lunch. i just checked on her about 1200 she said she was fine and felt clean with no complaints.
--- NOTE | 2022-08-17 12:50 | NUR ---
pt family states they were concerned about pts mentation, when i went in to talk to the family they didn't say anything about the patient, the pt seemed aware and was talking about her daughter taking a trip, daughter confirmed this was true. i had let charge know about this and it seems to not be an issue due to the pts family response.
[2022-08-17] MEDS ORDERED: metroNIDAZOLE 500mg tablet PO SCH (13:00)
--- NOTE | 2022-08-17 14:26 | NUR ---
let psychotherapist social worker Nesha know about families concerns about the pts mentation, family is not currently here but psychotherapist social worker is going to talk to pt
[2022-08-17 15:00] VITALS: BP 103/56
--- NOTE | 2022-08-17 15:40 | NUR ---
PRESSURE ULCER EDUCATION: DEFINITION: A pressure ulcer is an area of skin that breaks down when you stay in one position too long. The constant pressure against the skin reduces the blood flow to that area and the affected tissue dies. CAUSES: "Being bedridden or in a wheelchair "Fragile skin "Having a chronic condition, such as diabetes or vascular disease "Inability to move certain parts of your body without assistance "Older age "Incontinence of urine or stool SYMPTOMS: "A reddened area that DOES NOT turn white when pressed on - this can be the beginning of a pressure ulcer "A blister, deep sore or a crater - these can be advanced pressure ulcers FIRST AID: "Relieve the pressure on this area "Keep the area clean and dry "Call your primary doctor if you see any of the above symptoms "DO NOT massage the area "DO NOT use a donut shaped or ring shaped pillow- these actually interfere with the blood flow and cause complications PREVENTION: "Check for pressure ulcers everyday "Change position at least every two hours to relieve pressure "Use items that help relieve pressure- pillows, sheepskin, foam padding, and powders. "Keep skin clean and dry "Eat healthy well balanced meals "Exercise daily IF YOU SEE ANY OF THESE SYMPTOMS WHILE IN THE HOSPITAL - TELL YOUR NURSE IMMEDIATELY. IF YOU SEE ANY OF THESE SYMPTOMS WHILE AT HOME OR HAVE ANY QUESTIONS OR CONCERNS ABOUT PRESSURE ULCERS - CALL YOUR PRIMARY DOCTOR IMMEDIATELY. Addendum: 08/17/22 at 1540 by Mi Arredondo LVN Amended: Links added.
--- NOTE | 2022-08-17 16:15 | NUR ---
attempted to call report to [facility] twice, stated that the nurse will call me back. waiting for call back.
--- NOTE | 2022-08-17 16:42 | NUR ---
Problems reprioritized. Patient report given, questions answered & plan of care reviewed with Elias person [facility], case management stated to keep iv in and i confirmed facility they want the IV to stay due to pt getting abx, iv is saline flushed and locked and is patent.
--- NOTE | 2022-08-17 17:17 | NUR ---
pt is stable for dc, called [facility] for report, iv went with pt per nurse at [facility], pt took all her belongings with her, wound pictures taken and she left with [facility] personnel in a [facility] to [facility].
== END 2022-08-17 17:05 | DRG 871 ==
LOC: ER 20:12 → ED HOLD 08-13 04:47 → PCU 3S 08-13 11:24
PROVIDERS: ADMIT Internal Medicine; ATTEND Family Medicine
PROC: 30233N1 Transfusion of Nonautologous Red Blood Cells into Peripheral Vein, Percutaneous Approach (ICD-10-PCS; 2022-08-13)
PROC: BW211ZZ Computerized Tomography (CT Scan) of Abdomen and Pelvis using Low Osmolar Contrast (ICD-10-PCS; 2022-08-13)
PROC: 3E0234Z Introduction of Serum, Toxoid and Vaccine into Muscle, Percutaneous Approach (ICD-10-PCS; principal; 2022-08-13 17:32)
DX: A41.9 Sepsis, unspecified organism (principal); E43 Unspecified severe protein-calorie malnutrition; L03.115 Cellulitis of right lower limb; L02.214 Cutaneous abscess of groin; Z68.41 Body mass index [BMI] 40.0-44.9, adult; N28.89 Other specified disorders of kidney and ureter; D63.8 Anemia in other chronic diseases classified elsewhere; E11.9 Type 2 diabetes mellitus without complications; B95.62 Methicillin resistant Staphylococcus aureus infection as the cause of diseases classified elsewhere; E78.5 Hyperlipidemia, unspecified; I10 Essential (primary) hypertension; R33.9 Retention of urine, unspecified; E66.01 Morbid (severe) obesity due to excess calories; I25.10 Atherosclerotic heart disease of native coronary artery without angina pectoris; J44.9 Chronic obstructive pulmonary disease, unspecified; D50.9 Iron deficiency anemia, unspecified; K42.9 Umbilical hernia without obstruction or gangrene; K57.30 Diverticulosis of large intestine without perforation or abscess without bleeding; K59.00 Constipation, unspecified; N73.9 Female pelvic inflammatory disease, unspecified; G89.29 Other chronic pain; K21.9 Gastro-esophageal reflux disease without esophagitis; M54.9 Dorsalgia, unspecified; Z86.73 Personal history of transient ischemic attack (TIA), and cerebral infarction without residual deficits; Z23 Encounter for immunization; Z90.49 Acquired absence of other specified parts of digestive tract; Z79.899 Other long term (current) drug therapy; Z79.02 Long term (current) use of antithrombotics/antiplatelets
CPT/HCPCS: 36415; 36430; 71045; 74177; 80048; 80053; 81003; 83540; 83550; 83605; 83735; 83880; 84132; 84145; 84484; 85007; 85008; 85025; 85027; 86140; 86885; 86900; 86901; 86920; 87040; 87070; 87075; 87076; 87081; 90732; 93005; 93306; 94640; 94760; 96365; 97161; 97530; 99291; A4615; A4618; A6253; A6449; A7000; G0378; J0696; J1940; J2250; J2270; J2405; J2543; J2704; J3010; J3370; J3490; J7030; J7040; J7050; P9016; Q9967; S0020

== ENCOUNTER 2022-08-28 15:39 | Emergency (ER) | payer MEDICARE ==
[~2022-08-28] VITALS: Ht 157.5 cm; Wt 106.5 kg
[~2022-08-28 15:39] MED LIST: AMLO5TAB PO; ATOR40TA71 PO; CALC-336 PO; CLOP-32 PO; CYAN500T46 PO; LOSA50TA64 PO; PANT40TA54 PO
--- NOTE | 2022-08-28 19:11 | NUR ---
Spoke with ELAH Cervantes at [facility] to let them know pt returning to their facility. Son to transport patient back to facility.
[2022-08-28 19:26] VITALS: BP 132/75
== END 2022-08-28 19:27 | disposition short-term general hospital (02) ==
LOC: ER 15:39
DX: C64.9 Malignant neoplasm of unspecified kidney, except renal pelvis (principal); N83.209 Unspecified ovarian cyst, unspecified side; J44.9 Chronic obstructive pulmonary disease, unspecified; E11.9 Type 2 diabetes mellitus without complications; G89.29 Other chronic pain; M54.50 Low back pain, unspecified
CPT/HCPCS: 99283; 99285

== ENCOUNTER 2023-07-19 11:46 | Inpatient (IN) | payer MEDICARE ==
[~2023-07-19] VITALS: Ht 154.9 cm; Wt 94.5 kg
[2023-07-19 13:12] LABS: BASOPHILS # (AUTO) 0.1 X10'3 (0-0.2); BASOPHILS % (AUTO) 0.5 % (0-1); EOSINOPHILS # (AUTO) 0.8 X10'3 (0-0.9); LYMPHOCYTES # (AUTO) 2.8 X10'3 (1.1-4.8); LYMPHOCYTES % (AUTO) 19.9 % (21-51); MEAN CORPUSCULAR HEMOGLOBIN 17.9 PG (27.0-31.0); MEAN CORPUSCULAR HGB CONC 26.4 g/dL (33.0-36.5); MEAN CORPUSCULAR VOLUME 67.8 FL (78-98); MEAN PLATELET VOLUME 9.3 FL (7.4-10.4); MONOCYTES # (AUTO) 1.6 X10'3 (0-0.9); MONOCYTES % (AUTO) 11.5 % (2-12); NEUTROPHILS # (AUTO) 8.7 X10'3 (1.8-7.7); NEUTROPHILS % (AUTO) 62.1 % (42-75); PLATELET COUNT 445 X10'3 (140-440); RED BLOOD COUNT 3.04 X10'6 (4.20-5.60); RED CELL DISTRIBUTION WIDTH 20.6 % (11.5-14.5)
[2023-07-19 13:43] LABS: ALBUMIN 3.1 G/DL (3.4-5.0); ANION GAP 17 (8-16); BLOOD UREA NITROGEN 21 MG/DL (7-18); BUN/CREATININE RATIO 13.8 (10.0-20.0); CALCIUM 9.5 MG/DL (8.5-10.1); CHLORIDE 103 MMOL/L (99-107); CREATININE 1.52 MG/DL (0.40-0.90); GLUCOSE 173 MG/DL (70-104); POTASSIUM 4.6 MMOL/L (3.5-5.1); PRO BRAIN NATRIURETIC PEPTIDE 762 PG/ML (0-125); SODIUM 140 MMOL/L (135-145); TOTAL CARBON DIOXIDE 20.3 MMOL/L (24-32); eCRCL 25 ML/MIN; eGFR 33 ML/MIN
[2023-07-19 13:44] LABS: HEMATOCRIT 19.7 % (35.0-45.0); HEMOGLOBIN 5.9 g/dl (12.0-16.0)
[2023-07-19 17:02] LABS: ANISOCYTOSIS 3+; HYPOCHROMASIA 1+; MICROCYTOSIS 2+; PLATELET ESTIMATE NORMAL; POLYCHROMASIA FEW
[2023-07-19 17:03] LABS: ELLIPTOCYTES FEW; TEAR DROP CELLS FEW
[2023-07-19] MEDS ORDERED: ipratropium/albuterol 3ml nebule NEB PRN (17:45)
[2023-07-19] MEDS: MESSAGE TO PHARMACY PO ONE (17:45)
[2023-07-19] MEDS ORDERED: mag hydrox/Alum hydrox/simeth 30ml oral suspension PO PRN (17:45)
[2023-07-19] MEDS ORDERED: DEXTROSE 15 GM of carb/4 tabs (each vial/BOTTLE has 4 tablets) PO PRN ×2 (17:45)
[2023-07-19] MEDS ORDERED: acetaminophen 325mg tablet PO PRN ×2 (17:45)
[2023-07-19] MEDS ORDERED: ondansetron/PF 4mg/2ml inj IV PRN (17:45)
[2023-07-19] MEDS ORDERED: glucagon, human recombinant 1mg kit SUBCUT PRN (17:45)
[2023-07-19] MEDS ORDERED: potassium Cl 20 mEq SR tablet PO PRN ×2 (17:45)
[2023-07-19] MEDS ORDERED: magnesium 4gm in 100ml NS 100 ML IV PRN (17:45)
[2023-07-19] MEDS ORDERED: magnesium 2GM in 50ml NS 50 ML IV PRN (17:45)
[2023-07-19] MEDS ORDERED: insulin Lispro (HumaLOG) vial - multi-dose SQ SCH (17:45)
[2023-07-19] MEDS ORDERED: albuterol 2.5 MG/3 ML nebule NEB PRN (17:45)
[2023-07-19] MEDS ORDERED: HYDROcodone/acetaminophen 5mg/325mg tablet PO PRN (17:45)
[2023-07-19] MEDS ORDERED: dextrose 50%-water 50ml dispensing syringe IV PRN ×2 (17:45)
[2023-07-19] MEDS: normal saline 1000ml 1,000 ML IV SCH (17:45)
[2023-07-19] MEDS ORDERED: potassium Cl 40MEQ/1/2NS 520ml 520 ML IV PRN (17:45)
[2023-07-19] MEDS: PERFLUTREN PROTEIN-A MICROSPHR (Optison) 0.22 MG/ML 3ML VIAL IV ONE (17:45)
[2023-07-19 19:00] VITALS: PULSE 88; RESP 16; O2SAT 97
[2023-07-19] MEDS: HYDROcodone/acetaminophen 10/325mg tab PO PRN (19:28)
[2023-07-19] MEDS: docusate sod 100mg capsule PO SCH (20:00)
[2023-07-19 20:07] VITALS: BP 95/66; PULSE 102; RESP 18; TEMP 98.3
[2023-07-19] MEDS: K and/or MAG REPLACEMENT MC SCH (20:17)
[2023-07-19 20:26] VITALS: BP 93/70; PULSE 96; RESP 18; TEMP 98.9
[2023-07-19] MEDS: insulin glargine (Lantus) pen - multi-dose SQ SCH (21:00)
[2023-07-19 21:26] VITALS: BP 110/71; PULSE 95; RESP 16; TEMP 98.3
[2023-07-19 22:03] VITALS: BP 128/73; PULSE 94; RESP 18; TEMP 98.6
[2023-07-20] VITALS (7 sets, daily range): BP systolic 104–155; BP diastolic 40–66; PULSE 69–82; RESP 15–18; TEMP 97.3–98.1; O2SAT 93–97
[2023-07-20] MEDS: nicotine 7mg patch - 24hr TD SCH (08:27)
[2023-07-20 09:59] LABS: BASOPHILS # (AUTO) 0.1 X10'3 (0-0.2); BASOPHILS % (AUTO) 1.3 % (0-1); EOSINOPHILS # (AUTO) 0.6 X10'3 (0-0.9); EOSINOPHILS % (AUTO) 8.3 % (0-6); LYMPHOCYTES # (AUTO) 1.3 X10'3 (1.1-4.8); LYMPHOCYTES % (AUTO) 18.5 % (21-51); MEAN CORPUSCULAR HEMOGLOBIN 20.4 PG (27.0-31.0); MEAN CORPUSCULAR VOLUME 70.3 FL (78-98); MEAN PLATELET VOLUME 9.3 FL (7.4-10.4); MONOCYTES # (AUTO) 0.6 X10'3 (0-0.9); MONOCYTES % (AUTO) 9.2 % (2-12); NEUTROPHILS # (AUTO) 4.4 X10'3 (1.8-7.7); NEUTROPHILS % (AUTO) 62.7 % (42-75); PLATELET COUNT 279 X10'3 (140-440); RED BLOOD COUNT 2.86 X10'6 (4.20-5.60)
[2023-07-20 10:04] LABS: HEMATOCRIT 20.2 % (35.0-45.0); HEMOGLOBIN 5.8 g/dl (12.0-16.0)
[2023-07-20 10:17] LABS: % IRON SATURATION 4 % (11-46); ALANINE AMINOTRANSFERASE 13 U/L (12-78); ALBUMIN 2.8 G/DL (3.4-5.0); ALBUMIN/GLOBULIN RATIO 0.7 (1.1-1.5); ALKALINE PHOSPHATASE 86 IU/L (46-116); ANION GAP 9 (8-16); ASPARTATE AMINO TRANSFERASE 15 U/L (10-37); BILIRUBIN,TOTAL 0.5 MG/DL (0.1-1.0); BLOOD UREA NITROGEN 18 MG/DL (7-18); BUN/CREATININE RATIO 15.8 (10.0-20.0); CALCIUM 8.7 MG/DL (8.5-10.1); CHLORIDE 109 MMOL/L (99-107); CREATININE 1.14 MG/DL (0.40-0.90); GLUCOSE 112 MG/DL (70-104); IRON 14 UG/DL (49-151); MAGNESIUM 2.1 MG/DL (1.5-2.4); POTASSIUM 4.2 MMOL/L (3.5-5.1); SODIUM 143 MMOL/L (135-145); TOTAL CARBON DIOXIDE 25.1 MMOL/L (24-32); TOTAL IRON BINDING CAPACITY 366 UG/DL (259-388); TOTAL PROTEIN 6.8 G/DL (6.4-8.2); eCRCL 33 ML/MIN; eGFR 47 ML/MIN
[2023-07-20] MEDS ORDERED: HYDROmorphone 1 mg/ml syringe IV PRN (11:30)
[2023-07-20] MEDS: diazepam 5mg tablet PO PRN (12:31)
[2023-07-20] MEDS: HYDROmorphone inj. 0.5 MG/0.5 ML DISP.SYRIN IV PRN (12:35)
[2023-07-20] MEDS: PEG 3350/Na sulf,bicarb,Cl/KCl oral sol 4 liter bottle PO ONE (13:33)
[2023-07-20] MEDS: iron sucrose complex injection 300 MG in normal saline 250ml IV soln 250 ML IV SCH (16:07)
[2023-07-20] MEDS: nortriptyline 10mg capsule PO SCH (22:26)
[2023-07-21] VITALS (7 sets, daily range): BP systolic 117–130; BP diastolic 57–106; PULSE 73–88; RESP 17–22; TEMP 97.3; O2SAT 90–100
[2023-07-21 06:45] LABS: BASOPHILS # (AUTO) 0.1 X10'3 (0-0.2); BASOPHILS % (AUTO) 0.6 % (0-1); EOSINOPHILS % (AUTO) 8.7 % (0-6); HEMATOCRIT 24.9 % (35.0-45.0); HEMOGLOBIN 7.8 g/dl (12.0-16.0); LYMPHOCYTES # (AUTO) 1.4 X10'3 (1.1-4.8); LYMPHOCYTES % (AUTO) 12.9 % (21-51); MEAN CORPUSCULAR HEMOGLOBIN 23.1 PG (27.0-31.0); MEAN CORPUSCULAR HGB CONC 31.5 g/dL (33.0-36.5); MEAN CORPUSCULAR VOLUME 73.3 FL (78-98); MONOCYTES % (AUTO) 9.5 % (2-12); NEUTROPHILS # (AUTO) 7.5 X10'3 (1.8-7.7); NEUTROPHILS % (AUTO) 68.3 % (42-75); PLATELET COUNT 255 X10'3 (140-440); RED BLOOD COUNT 3.39 X10'6 (4.20-5.60); RED CELL DISTRIBUTION WIDTH 24.3 % (11.5-14.5)
[2023-07-21 07:15] LABS: ALANINE AMINOTRANSFERASE 13 U/L (12-78); ALBUMIN 2.5 G/DL (3.4-5.0); ALBUMIN/GLOBULIN RATIO 0.6 (1.1-1.5); ALKALINE PHOSPHATASE 86 IU/L (46-116); ANION GAP 12 (8-16); ASPARTATE AMINO TRANSFERASE 17 U/L (10-37); BILIRUBIN,TOTAL 1.1 MG/DL (0.1-1.0); BLOOD UREA NITROGEN 13 MG/DL (7-18); BUN/CREATININE RATIO 15.9 (10.0-20.0); CALCIUM 8.3 MG/DL (8.5-10.1); CHLORIDE 110 MMOL/L (99-107); CREATININE 0.82 MG/DL (0.40-0.90); GLUCOSE 89 MG/DL (70-104); POTASSIUM 4.3 MMOL/L (3.5-5.1); SODIUM 144 MMOL/L (135-145); TOTAL CARBON DIOXIDE 22.4 MMOL/L (24-32); TOTAL PROTEIN 6.5 G/DL (6.4-8.2); eCRCL 45 ML/MIN; eGFR 68 ML/MIN
[2023-07-21] MEDS ORDERED: MIDAZolam 1 MG/ML 5ML VIAL ONE (10:25)
[2023-07-21] MEDS ORDERED: LIDOcaine Viscous 15ml cup ONE (10:25)
[2023-07-21] MEDS ORDERED: fentaNYL/PF 50MCG/1 ML 2ML syringe ONE (10:25)
[2023-07-21 11:49] LABS: HYPOCHROMASIA 1+; PLATELET ESTIMATE NORMAL; POLYCHROMASIA 1+
[2023-07-21 11:50] LABS: ANISOCYTOSIS 3+; MICROCYTOSIS 1+
[2023-07-21] MEDS ORDERED: NICO-630 TD (15:30)
[2023-07-21] MEDS ORDERED: FERR324T4 PO (15:30)
[2023-07-21] MEDS ORDERED: PANT40TA54 PO (15:30)
[2023-07-23 13:15] LABS: SELENIUM, SERUM/PLASMA 111 ug/L (93-198)
[2023-07-26 05:26] LABS: COPPER, PLASMA 138 ug/dL (80-158)
== END 2023-07-21 16:30 | disposition home or self-care (01) | DRG 811 ==
LOC: ER 11:47 → ED HOLD 17:50 → ORTHO 4S 07-20 09:05
PROVIDERS: ADMIT Family Medicine; ATTEND Family Medicine
PROC: 30233N1 Transfusion of Nonautologous Red Blood Cells into Peripheral Vein, Percutaneous Approach (ICD-10-PCS; 2023-07-19)
PROC: 0DJ08ZZ Inspection of Upper Intestinal Tract, Via Natural or Artificial Opening Endoscopic (ICD-10-PCS; principal; 2023-07-21)
PROC: 0DBH8ZZ Excision of Cecum, Via Natural or Artificial Opening Endoscopic (ICD-10-PCS; 2023-07-21)
DX: D50.9 Iron deficiency anemia, unspecified (principal); N17.0 Acute kidney failure with tubular necrosis; K91.2 Postsurgical malabsorption, not elsewhere classified; C64.2 Malignant neoplasm of left kidney, except renal pelvis; I50.42 Chronic combined systolic (congestive) and diastolic (congestive) heart failure; K63.5 Polyp of colon; Z66 Do not resuscitate; D12.0 Benign neoplasm of cecum; J44.9 Chronic obstructive pulmonary disease, unspecified; M51.36 Other intervertebral disc degeneration, lumbar region; M47.816 Spondylosis without myelopathy or radiculopathy, lumbar region; F17.210 Nicotine dependence, cigarettes, uncomplicated; E11.9 Type 2 diabetes mellitus without complications; K57.30 Diverticulosis of large intestine without perforation or abscess without bleeding; D63.8 Anemia in other chronic diseases classified elsewhere; Z86.73 Personal history of transient ischemic attack (TIA), and cerebral infarction without residual deficits; Z98.84 Bariatric surgery status; Z80.0 Family history of malignant neoplasm of digestive organs; Z79.02 Long term (current) use of antithrombotics/antiplatelets; Z80.51 Family history of malignant neoplasm of kidney; Z82.49 Family history of ischemic heart disease and other diseases of the circulatory system; Z87.19 Personal history of other diseases of the digestive system; Z79.899 Other long term (current) drug therapy; Z90.49 Acquired absence of other specified parts of digestive tract; Y83.8 Other surgical procedures as the cause of abnormal reaction of the patient, or of later complication, without mention of misadventure at the time of the procedure; Y92.9 Unspecified place or not applicable
CPT/HCPCS: 36415; 36430; 43235; 45385; 71045; 80048; 80053; 82607; 82746; 82948; 83540; 83550; 83735; 83880; 84255; 84484; 84630; 85008; 85025; 86885; 86900; 86901; 86920; 87081; 93005; 93306; 94760; 99152; 99153; 99285; A4620; C1889; G0378; J1170; J1756; J1815; J2250; J3010; J7030; J7040; J7050; P9016

== ENCOUNTER 2023-08-29 08:51 | Emergency (ER) | payer MEDICARE ==
[~2023-08-29] VITALS: Ht 157.5 cm; Wt 92.8 kg
[~2023-08-29 08:51] MED LIST changes: -AMLO5TAB PO; +FERR324T4 PO; +NICO-630 TD
[2023-08-29 09:03] VITALS: BP 138/82; PULSE 83; TEMP 98; O2SAT 99
[2023-08-29 11:55] LABS: ALBUMIN 3.2 G/DL (3.4-5.0); ANION GAP 11 (8-16); BLOOD UREA NITROGEN 10 MG/DL (7-18); BUN/CREATININE RATIO 11.9 (10.0-20.0); CALCIUM 9.2 MG/DL (8.5-10.1); CHLORIDE 107 MMOL/L (99-107); CREATININE 0.84 MG/DL (0.40-0.90); GLUCOSE 104 MG/DL (70-104); PRO BRAIN NATRIURETIC PEPTIDE 1369 PG/ML (0-125); SODIUM 146 MMOL/L (135-145); TOTAL CARBON DIOXIDE 27.6 MMOL/L (24-32); eCRCL 46 ML/MIN; eGFR 66 ML/MIN
[2023-08-29 12:17] VITALS: RESP 16
[2023-08-29 12:32] LABS: BASOPHILS # (AUTO) 0.1 X10'3 (0-0.2); BASOPHILS % (AUTO) 0.8 % (0-1); EOSINOPHILS # (AUTO) 0.2 X10'3 (0-0.9); EOSINOPHILS % (AUTO) 2.3 % (0-6); HEMATOCRIT 38.9 % (35.0-45.0); HEMOGLOBIN 12.4 g/dl (12.0-16.0); LYMPHOCYTES # (AUTO) 1.2 X10'3 (1.1-4.8); LYMPHOCYTES % (AUTO) 15.5 % (21-51); MEAN CORPUSCULAR HGB CONC 31.8 g/dL (33.0-36.5); MEAN PLATELET VOLUME 10.3 FL (7.4-10.4); MONOCYTES # (AUTO) 0.5 X10'3 (0-0.9); MONOCYTES % (AUTO) 6.8 % (2-12); NEUTROPHILS # (AUTO) 5.6 X10'3 (1.8-7.7); NEUTROPHILS % (AUTO) 74.6 % (42-75); PLATELET COUNT 232 X10'3 (140-440); RED BLOOD COUNT 4.42 X10'6 (4.20-5.60); RED CELL DISTRIBUTION WIDTH 28.9 % (11.5-14.5); WHITE BLOOD COUNT 7.4 X10'3 (4.5-11.0)
[2023-08-29 12:57] LABS: ANISOCYTOSIS 3+; ELLIPTOCYTES FEW; HYPOCHROMASIA 1+; PLATELET ESTIMATE NORMAL
[2023-08-29] MEDS ORDERED: MECL-302 PO (13:48)
[2023-08-29] MEDS: meclizine 12.5mg tablet PO ONE (14:01)
[2023-08-29] MEDS: normal saline 1000ml 1,000 ML IV ONE (14:04)
[2023-08-29] MEDS: ondansetron/PF 4mg/2ml inj IV ONE (14:04)
== END 2023-08-29 14:05 | disposition home or self-care (01) ==
LOC: ER 08:52
DX: R42 Dizziness and giddiness (principal); J44.9 Chronic obstructive pulmonary disease, unspecified; E11.9 Type 2 diabetes mellitus without complications; Z79.899 Other long term (current) drug therapy
CPT/HCPCS: 36415; 71045; 80048; 83880; 84484; 85008; 85025; 93005; 99285; J8597

== ENCOUNTER 2024-08-27 22:48 | Emergency (ER) | payer MEDICARE ==
[~2024-08-27] VITALS: Ht 157.5 cm; Wt 96.6 kg
[~2024-08-27 22:48] MED LIST changes: +MECL-302 PO
[2024-08-28] MEDS ORDERED: DOXY-224 PO (02:19)
[2024-08-28] MEDS ORDERED: CEPH500C2 PO (02:19)
[2024-08-28 02:47] LABS: BASOPHILS # (AUTO) 0.1 X10'3 (0-0.2); BASOPHILS % (AUTO) 0.4 % (0-1); EOSINOPHILS # (AUTO) 0.1 X10'3 (0-0.9); EOSINOPHILS % (AUTO) 0.7 % (0-6); HEMATOCRIT 42.4 % (35.0-45.0); HEMOGLOBIN 13.9 g/dl (12.0-16.0); LYMPHOCYTES # (AUTO) 1.8 X10'3 (1.1-4.8); LYMPHOCYTES % (AUTO) 13.5 % (21-51); MEAN CORPUSCULAR HEMOGLOBIN 31.4 PG (27.0-31.0); MEAN CORPUSCULAR HGB CONC 32.7 g/dL (33.0-36.5); MEAN CORPUSCULAR VOLUME 96.1 FL (78-98); MEAN PLATELET VOLUME 9.9 FL (7.4-10.4); MONOCYTES # (AUTO) 0.8 X10'3 (0-0.9); MONOCYTES % (AUTO) 6.3 % (2-12); NEUTROPHILS # (AUTO) 10.6 X10'3 (1.8-7.7); NEUTROPHILS % (AUTO) 79.1 % (42-75); PLATELET COUNT 218 X10'3 (140-440); RED BLOOD COUNT 4.41 X10'6 (4.20-5.60); RED CELL DISTRIBUTION WIDTH 14.2 % (11.5-14.5); WHITE BLOOD COUNT 13.4 X10'3 (4.5-11.0)
[2024-08-28 02:53] LABS: ALBUMIN 3.3 G/DL (3.4-5.0); ANION GAP 10 (8-16); BLOOD UREA NITROGEN 12 MG/DL (7-18); BUN/CREATININE RATIO 14.6 (10.0-20.0); CALCIUM 9.1 MG/DL (8.5-10.1); CHLORIDE 107 MMOL/L (99-107); CREATININE 0.82 MG/DL (0.40-0.90); GLUCOSE 123 MG/DL (70-104); POTASSIUM 4.3 MMOL/L (3.5-5.1); SODIUM 142 MMOL/L (135-145); TOTAL CARBON DIOXIDE 25.5 MMOL/L (24-32); eCRCL 47 ML/MIN; eGFR 68 ML/MIN
[2024-08-28 03:26] VITALS: BP 126/72; PULSE 76; RESP 16; TEMP 98.1; O2SAT 98
== END 2024-08-28 03:27 | disposition home or self-care (01) ==
LOC: ER 22:49
DX: N76.4 Abscess of vulva (principal); E11.9 Type 2 diabetes mellitus without complications; J44.9 Chronic obstructive pulmonary disease, unspecified; D64.9 Anemia, unspecified; G89.29 Other chronic pain; M54.9 Dorsalgia, unspecified; F17.200 Nicotine dependence, unspecified, uncomplicated; Z86.73 Personal history of transient ischemic attack (TIA), and cerebral infarction without residual deficits; Z90.49 Acquired absence of other specified parts of digestive tract; Z98.890 Other specified postprocedural states; Z79.899 Other long term (current) drug therapy
CPT/HCPCS: 36415; 80048; 85025; 99283